=== PATIENT | female | born 1950 | race Caucasian/White ===

== ENCOUNTER 2021-09-04 14:22 | Emergency (ER) | payer OTHER ==
[~2021-09-04] VITALS: Ht 152.4 cm; Wt 90.7 kg
[2021-09-04 14:23] VITALS: BP 166/64
== END 2021-09-04 16:52 | disposition home or self-care (01) ==
LOC: ER 14:22
DX: R05.9 Cough, unspecified (principal); Z20.822 Contact with and (suspected) exposure to COVID-19; I10 Essential (primary) hypertension; E11.9 Type 2 diabetes mellitus without complications